=== PATIENT | female | born 1985 | race Caucasian/White ===

== ENCOUNTER 2024-07-15 06:34 | Emergency (ER) | payer BC ==
[~2024-07-15] VITALS: Ht 162.6 cm; Wt 92.1 kg
[~2024-07-15 06:34] MED LIST: HYDACE5 PO; IBUP800 PO; INDO50 PO; LORA1 PO; OXYACE5T PO; [UNRECOGNIZED DRUG - OTHER]
[2024-07-15 07:28] VITALS: BP 156/113
== END 2024-07-15 07:53 | disposition home or self-care (01) ==
LOC: ER 06:34
DX: G58.8 Other specified mononeuropathies (principal); Z79.899 Other long term (current) drug therapy
CPT/HCPCS: 99282